=== PATIENT | female | born 1955 | race African-American/Black ===

== ENCOUNTER 2023-07-15 14:26 | Outpatient (CLI) | payer MEDICAID, SELFPAY | END 2023-07-15 14:27 | disposition home or self-care (01) | PROVIDERS: PCP Nurse Practitioner Family; Visit Provider Family Medicine | DX: M17.11 Unilateral primary osteoarthritis, right knee (principal); M25.561 Pain in right knee | CPT/HCPCS: 64454 ==

== ENCOUNTER 2023-08-12 12:19 | Outpatient (CLI) | payer MEDICAID, SELFPAY | END 2023-08-12 12:20 | disposition home or self-care (01) | LOC: INJ CL 12:21 | PROVIDERS: PCP Nurse Practitioner Family; Visit Provider Family Medicine | DX: M17.11 Unilateral primary osteoarthritis, right knee (principal); M25.561 Pain in right knee; G89.29 Other chronic pain | CPT/HCPCS: 64624 ==